=== PATIENT | female | born 1960 | race Caucasian/White ===

== ENCOUNTER 2020-02-15 11:13 | Emergency (ER) | payer MEDICAID ==
[2020-02-15] MEDS ORDERED: IPRATROPIUM/ALBUTEROL 0.5-2.5 MG/3 ML AMPUL NEB ONE (12:11)
[2020-02-15] MEDS ORDERED: DEXAMETHASONE 4 MG TABLET PO ONE (12:11)
--- NOTE | 2020-02-15 12:45 | ER Document Report ---
ED Respiratory Problem - General Chief Complaint: Shortness Of Breath Stated Complaint: COUGH/CONGESTION/SORE THROAT Time Seen by Provider: 02/15/20 11:48 Notes: CHIEF COMPLAINT: Cough for 3 to 5 days, body ache, sore throat HPI: 60-year-old female with history of asthma, COPD presenting for cough for 3 to 5 days, body, sore throat, mild shortness of breath. States that she is from [place]. States that she came up to stay with her mother who is dying of lung cancer. States in the last 2 weeks they have taken several trips up to [place] because of her mother's dying wishes, as they came back her mother became ill with upper respiratory symptoms, she became ill with upper respiratory symptoms and her sister also has upper respiratory symptoms. Patient has been using a pro-air inhaler with some relief of wheezing but still with cough and wheezing. States that she does not have steroids because she does not have a primary doctor here. No fever but has had body ache and sore throat. ROS: See HPI - all other systems were reviewed and are otherwise negative Constitutional: no fever Eyes: no drainage, no blurred vision ENT: no runny nose, positive sore throat Cardiovascular: no chest pain Resp: Positive SOB, positive cough GI: no vomiting, no diarrhea, no abdominal pain : no dysuria Integumentary: no rash Allergy: no hives Musculoskeletal: no extremity pain or swelling, positive myalgia Neurological: no numbness/tingling, no weakness MEDICATIONS: I agree with the patient medications as charted by the RN. ALLERGIES: I agree with the allergies as charted by the RN. PAST MEDICAL HISTORY/PAST SURGICAL HISTORY: Reviewed and agree as charted by RN. SOCIAL HISTORY: Reviewed and agree as charted by RN. FAMILY HISTORY: No significant familial comorbid conditions directly related to patient complaint EXAM: Reviewed vital signs as charted by RN. CONSTITUTIONAL: Alert and oriented and responds appropriately to questions. Well-appearing; well-nourished HEAD: Normocephalic; atraumatic EYES: PERRL; Conjunctivae clear, sclerae non-icteric ENT: normal nose; no rhinorrhea; moist mucous membranes; pharynx without lesions noted, no uvula edema or deviation, no tonsillar hypertrophy, phonation normal NECK: Supple without meningismus; non-tender; no cervical lymphadenopathy, no masses CARD: RRR; no murmurs, no clicks, no rubs, no gallops; symmetric distal pulses RESP: Normal chest excursion without splinting or tachypnea; breath sounds noted to have expiratory wheezing in all lung rogers, no rhonchi, no rales, pulse oximetry ABD/GI: Obese, normal bowel sounds; non-distended; soft, non-tender, no rebound, no guarding; no palpable organomegaly or masses. BACK: The back appears normal and is non-tender to palpation, there is no CVA tenderness EXT: Normal ROM in all joints; non-tender to palpation; no cyanosis, no effusions, no edema SKIN: Normal color for age and race; warm; dry; good turgor; no acute lesions noted NEURO: Moves all extremities equally; Motor and sensory function intact PSYCH: The patient's mood and manner are appropriate. Grooming and personal hygiene are appropriate. MDM: 60-year-old female presenting for upper respiratory symptoms over the last 3 to 5 days with body ache. No fever. She is wheezing. History of emphysema. Will give breathing treatment and Decadron. Will obtain flu strep and COVID testing. She has no chest pain to suggest ACS. Patient family members are all ill also with upper respiratory symptoms. - Related Data Allergies/Adverse Reactions: No Known Allergies Allergy (Unverified 02/15/20 11:41) Home Medications: Amlodipine, Methimazole, Xanax, Celexa, Prednison, Rosuvastatin, Montelukast, Cetirizine, Symbicort, Proair Past Medical History - Social History Smoking Status: Current Every Day Smoker Family History: Reviewed & Not Pertinent - Past Medical History Cardiac Medical History: Reports: Hx Hypercholesterolemia Pulmonary Medical History: Reports: Hx Asthma, Hx COPD Psychiatric Medical History: Reports: Hx Depression Physical Exam - Vital signs Vitals: Temp Pulse Resp BP 98.8 F 78 20 115/72 02/15/20 11:32 02/15/20 11:32 02/15/20 11:32 02/15/20 11:32 Course - Re-evaluation Re-evalutation: 02/15/20 13:30 Chest x-ray does not show evidence of infiltrate or pneumonia. Patient lung sounds are still showing slight wheezing expiratory but patient states her breathing feels better. Patient does smoke and continues to smoke throughout her illness. Likely a lower respiratory infection although patient will be a COVID-19 patient until ruled out by testing. Will place patient on doxycycline for lower respiratory infection pending her results. We will continue Decadron and albuterol - Vital Signs Vital signs: Temp Pulse Resp BP Pulse Ox 98.8 F 78 20 115/72 100 02/15/20 11:32 02/15/20 11:32 02/15/20 11:32 02/15/20 11:32 02/15/20 13:00 Discharge - Discharge Clinical Impression: Lower respiratory infection, Person under investigation for COVID-19, Acute bronchospasm Condition: Stable Disposition: HOME, SELF-CARE Additional Instructions: You are considered a person under investigation for COVID-19 at this time self quarantine at home pending results which usually take 2 to 5 days. You should receive a call from someone at the hospital about your results. Use the albuterol inhaler 2 puffs every 4 hours as needed for wheezing or shortness of breath. Stop smoking if you want to get better. Take the doxycycline and Decadron as prescribed. Prescriptions: Dexamethasone [Decadron 4 Mg Tablet] 4 mg PO DAILY #5 tablet Doxycycline Monohydrate 100 mg PO BID #20 capsule Albuterol Sulfate [Proair HFA Inhalation Aerosol 8.5 gm MDI] 2 puff IH Q4H PRN #1 mdi PRN Reason:
[2020-02-15 12:56] LABS: A TYPE INFLUENZA AG NEGATIVE (NEGATIVE); B INFLUENZA AG NEGATIVE (NEGATIVE)
--- NOTE | 2020-02-15 13:28 | RADIOLOGY REPORT (SQ) ---
EXAM DESCRIPTION: CHEST SINGLE VIEW IMAGES COMPLETED DATE/TIME: 02/15/2020 12:10 pm REASON FOR STUDY: cough COMPARISON: None. EXAM PARAMETERS: NUMBER OF VIEWS: One view. TECHNIQUE: Single frontal radiographic view of the chest acquired. RADIATION DOSE: NA LIMITATIONS: None. FINDINGS: LUNGS AND PLEURA: No opacities, masses or pneumothorax. No pleural effusion. MEDIASTINUM AND HILAR STRUCTURES: No masses. Contour normal. HEART AND VASCULAR STRUCTURES: Heart normal in size. Normal vasculature. BONES: No acute findings. HARDWARE: None in the chest. OTHER: No other significant finding. IMPRESSION: NO ACUTE RADIOGRAPHIC FINDING IN THE CHEST. TECHNICAL DOCUMENTATION: JOB ID: [id number] 2010 [employer]- All Rights Reserved Reading location - IP/workstation name: [email or web address]
[2020-02-15] MEDS ORDERED: DOXYCYCLINE HYCLATE 100 MG TABLET PO ONE (13:30)
[2020-02-15 14:09] VITALS: BP 105/63
== END 2020-02-15 14:09 | disposition home or self-care (01) ==
LOC: ER 11:13
DX: J22 Unspecified acute lower respiratory infection (principal); J98.01 Acute bronchospasm; J02.9 Acute pharyngitis, unspecified; Z20.828 Contact with and (suspected) exposure to other viral communicable diseases; F17.200 Nicotine dependence, unspecified, uncomplicated; E78.00 Pure hypercholesterolemia, unspecified
CPT/HCPCS: 94640; 99284; 87070; 87880; 87635; 87804; 71045; J8540; C9803